=== PATIENT | female | born 1990 | race Two or more races ===

== ENCOUNTER 2022-08-01 10:25 | Outpatient (CLI) | payer OTHER | END 2022-08-01 11:29 | disposition home or self-care (01) | LOC: PRENATAL 10:25 | PROVIDERS: ATTEND Obstetrics & Gynecology Maternal & Fetal Medicine | DX: O36.80X0 Pregnancy with inconclusive fetal viability, not applicable or unspecified (principal) ==

== ENCOUNTER 2022-10-10 12:43 | Outpatient (CLI) | payer OTHER | END 2022-10-10 16:35 | disposition home or self-care (01) | LOC: PRENATAL 12:43 | PROVIDERS: ATTEND Obstetrics & Gynecology Maternal & Fetal Medicine | DX: O35.9XX0 Maternal care for (suspected) fetal abnormality and damage, unspecified, not applicable or unspecified (principal); O35.3XX0 Maternal care for (suspected) damage to fetus from viral disease in mother, not applicable or unspecified; Z3A.21 21 weeks gestation of pregnancy ==

== ENCOUNTER 2023-01-01 14:59 | Outpatient (CLI) | payer OTHER | END 2023-01-01 16:43 | disposition home or self-care (01) | LOC: PRENATAL 14:59 | PROVIDERS: ATTEND Obstetrics & Gynecology Maternal & Fetal Medicine | DX: O26.849 Uterine size-date discrepancy, unspecified trimester (principal); O36.8199 Decreased fetal movements, unspecified trimester, other fetus; O35.3XX0 Maternal care for (suspected) damage to fetus from viral disease in mother, not applicable or unspecified; Z3A.32 32 weeks gestation of pregnancy ==

== ENCOUNTER 2023-02-12 12:26 | Outpatient (CLI) | payer OTHER ==
[2023-02-12] MEDS ORDERED: IRON236 MG PO (12:30)
[2023-02-12] MEDS ORDERED: PRENATAL TABLE1 EAC1 PO (12:31)
== END 2023-02-12 15:58 | disposition home or self-care (01) ==
LOC: OBS/DEL 12:26
PROVIDERS: ATTEND Obstetrics & Gynecology
DX: O26.893 Other specified pregnancy related conditions, third trimester (principal); Z3A.33 33 weeks gestation of pregnancy

== ENCOUNTER 2023-02-14 22:22 | Inpatient (IN) | payer OTHER ==
[~2023-02-14] VITALS: Ht 160 cm; Wt 60.3 kg
[~2023-02-14 22:22] MED LIST: IRON236 MG PO; PRENATAL TABLE1 EAC1 PO
== END 2023-02-18 19:07 | disposition home or self-care (01) | DRG 788 ==
LOC: LDR 22:22 → OB/GYN 02-15 18:23 → SURG 02-17 11:05 → OB/GYN 02-18 19:07
PROVIDERS: ADMIT Obstetrics & Gynecology; ATTEND Obstetrics & Gynecology
PROC: 4A1HXCZ Monitoring of Products of Conception, Cardiac Rate, External Approach (ICD-10-PCS; 2023-02-14)
PROC: 10D00Z1 Extraction of Products of Conception, Low, Open Approach (ICD-10-PCS; principal; 2023-02-15 17:00)
DX: O62.0 Primary inadequate contractions (principal); Z3A.39 39 weeks gestation of pregnancy; Z37.0 Single live birth; Z20.822 Contact with and (suspected) exposure to COVID-19